=== PATIENT | male | born 1995 | race Two or more races ===

== ENCOUNTER 2024-03-15 00:59 | Inpatient (IN) | payer MEDICAID, OTHER ==
[~2024-03-15] VITALS: Ht 185.4 cm; Wt 83.5 kg
[2024-03-15] MEDS: DiphenhydrAMINE HCL 50 MG/ML VIAL IM ONE (02:11)
[2024-03-15] MEDS: HALOPERIDOL LACTATE 5 MG/ML VIAL IM ONE (02:11)
[2024-03-15] MEDS: LORazepam 2 MG/ML VIAL IM ONE (02:11)
[2024-03-15 02:35] LABS: COVID AG,FIA SOURCE NASAL SWAB
[2024-03-15 02:44] LABS: BASOPHILS % (AUTO) 0.3 % (0.0-2.0); EOSINOPHILS % (AUTO) 1.1 % (1.0-6.0); HEMATOCRIT 37.5 % (41-53); HEMOGLOBIN 12.4 g/dL (13.5-17.5); LYMPHOCYTES # (AUTO) 1.7 K/uL (1.0-4.8); LYMPHOCYTES % (AUTO) 11.5 % (22.0-44.0); MEAN CORPUSCULAR HEMOGLOBIN 30.1 pg (26.0-34.0); MEAN CORPUSCULAR HGB CONC 33.2 G/dL (31.0-37.0); MEAN CORPUSCULAR VOLUME 91 fL (80-100); MONOCYTES # (AUTO) 1.3 K/uL (0.1-1.0); MONOCYTES % (AUTO) 8.3 % (2.0-9.0); NEUTROPHILS # (AUTO) 11.9 K/uL (1.8-7.7); NEUTROPHILS % (AUTO) 78.8 % (40.0-70.0); PLATELET COUNT (AUTO) 299 K/uL (150-450); RED BLOOD CELL COUNT(AUTO) 4.14 MIL/uL (4.50-5.90); WHITE BLOOD COUNT (AUTO) 15.1 K/uL (4.5-11.0)
[2024-03-15 02:54] LABS: SARS-COV2 (COVID) ANTIGEN,FIA Negative (Negative)
[2024-03-15 02:55] LABS: ANION GAP 6 mmol/L (8-16); CALCIUM, TOTAL 9.3 mg/dL (8.8-10.5); CARBON DIOXIDE 31 mmol/L (22-29); CHLORIDE 102 mmol/L (98-107); CREATININE 1.06 mg/dL (0.60-1.30); GLOMERULAR FILTR. RATE CALC > 60 mL/min (>60); GLUCOSE,RANDOM 92 mg/dL (70-110); POTASSIUM 4.3 mmol/L (3.5-5.1); SODIUM SERUM 139 mmol/L (136-145); UREA NITROGEN, BLOOD 18 mg/dL (7-18)
[2024-03-15 02:56] LABS: ALCOHOL, BLOOD (SERUM) < 3 mg/dL (0-10)
[2024-03-15] MEDS ORDERED: SERT-439 PO (14:12)
[2024-03-15] MEDS ORDERED: LITH300C3 PO (14:12)
[2024-03-15] MEDS ORDERED: OLAN10TA74 PO (14:12)
[2024-03-15] MEDS ORDERED: CHOL200059 PO (14:16)
[2024-03-15] MEDS: SERTRALINE HCL 50 MG TABLET PO SCH (14:19)
[2024-03-15] MEDS ORDERED: CloNIDine HCL 0.1 MG TABLET PO PRN (15:00)
[2024-03-15] MEDS ORDERED: LOPERAMIDE HCL 2 MG CAPSULE PO PRN (15:00)
[2024-03-15] MEDS ORDERED: ACETAMINOPHEN 325 MG TABLET PO PRN (15:00)
[2024-03-15] MEDS ORDERED: NICOTINE 14 MG/24 HOUR PATCH TD PRN (15:00)
[2024-03-15] MEDS ORDERED: ONDANSETRON HCL 4 MG TABLET PO PRN (15:00)
[2024-03-15] MEDS ORDERED: IBUPROFEN 400 MG TABLET PO PRN (15:00)
[2024-03-15] MEDS ORDERED: MAGNESIUM HYDROXIDE SUSPENSION 30 ML UDCUP PO PRN (15:00)
[2024-03-15] MEDS ORDERED: ALBUTEROL SULFATE HFA 90 MCG/PUFF 8 GM INHALER IH PRN (15:00)
[2024-03-15] MEDS ORDERED: DOCUSATE SODIUM 100 MG CAPSULE PO PRN (15:00)
[2024-03-15] MEDS ORDERED: GuaiFENesin/D-METHORPHAN [SUGAR-FREE] 200-20MG/10 ML SYRUP UDCUP PO PRN (15:00)
[2024-03-15] MEDS ORDERED: PETROLATUM,WHITE 28 GM JELLY TP PRN (15:00)
[2024-03-15] MEDS ORDERED: MAG HYDROX/ALUMINUM HYD/SIMETH ES 30 ML SUSPENSION UDCUP PO PRN (15:00)
[2024-03-15] MEDS: LITHIUM CARBONATE 300 MG CAPSULE PO SCH (16:42)
[2024-03-15] MEDS: OLANZapine 10 MG TABLET PO SCH (20:17)
[2024-03-16 08:48] LABS: HEMOGLOBIN A1C 5.5 % (3.8-5.6)
[2024-03-16 09:18] LABS: CHOL/HDL RATIO 1.6 (4.2-7.3); THYROID STIMULATING HORMONE 0.45 uIU/mL (0.36-3.74)
[2024-03-16 10:10] VITALS: BP 110/56; PULSE 68; RESP 18; TEMP 98.4
[2024-03-16] MEDS: HALOPERIDOL 5 MG TABLET PO PRN (21:11)
[2024-03-16] MEDS: LORazepam 2 MG TABLET PO PRN (21:11)
[2024-03-16 21:22] VITALS: RESP 18
[2024-03-16] MEDS: ZOLPIDEM TARTRATE 10 MG TABLET PO PRN (21:30)
[2024-03-17 09:08] VITALS: BP 121/74; PULSE 103; RESP 18; TEMP 98.8
[2024-03-17 21:22] VITALS: BP 137/70; PULSE 85; RESP 18; TEMP 98.5
[2024-03-18 08:00] LABS: BASOPHILS % (AUTO) 0.7 % (0.0-2.0); EOSINOPHILS % (AUTO) 2.5 % (1.0-6.0); HEMATOCRIT 43.5 % (41-53); HEMOGLOBIN 14.5 g/dL (13.5-17.5); LYMPHOCYTES # (AUTO) 2.2 K/uL (1.0-4.8); LYMPHOCYTES % (AUTO) 24.7 % (22.0-44.0); MEAN CORPUSCULAR HEMOGLOBIN 30.4 pg (26.0-34.0); MEAN CORPUSCULAR HGB CONC 33.3 G/dL (31.0-37.0); MEAN CORPUSCULAR VOLUME 91 fL (80-100); MONOCYTES # (AUTO) 0.5 K/uL (0.1-1.0); MONOCYTES % (AUTO) 6.3 % (2.0-9.0); NEUTROPHILS # (AUTO) 5.8 K/uL (1.8-7.7); NEUTROPHILS % (AUTO) 65.8 % (40.0-70.0); PLATELET COUNT (AUTO) 365 K/uL (150-450); RED BLOOD CELL COUNT(AUTO) 4.77 MIL/uL (4.50-5.90); RED CELL DISTRIBUTION WIDTH 13.1 % (11.5-14.5); WHITE BLOOD COUNT (AUTO) 8.7 K/uL (4.5-11.0)
[2024-03-18 08:45] VITALS: RESP 18
[2024-03-18 22:38] VITALS: RESP 18
[2024-03-19 15:12] VITALS: RESP 18
[2024-03-19 23:48] VITALS: BP 108/66; PULSE 80; RESP 18; TEMP 96.9
[2024-03-20 11:14] VITALS: BP 114/77; PULSE 64; RESP 18; TEMP 97.4
[2024-03-20 21:43] VITALS: BP 101/60; PULSE 81; RESP 18; TEMP 98.4
[2024-03-21 09:05] VITALS: BP 111/79; PULSE 95; RESP 16; TEMP 97.6
[2024-03-21] MEDS ORDERED: LITH300C3 PO (14:31)
[2024-03-21] MEDS ORDERED: OLAN10TA74 PO (14:31)
[2024-03-21] MEDS ORDERED: SERT-439 PO (14:31)
[2024-03-21] MEDS ORDERED: NALO4SPR NASAL (14:31)
== END 2024-03-21 15:35 | disposition home or self-care (01) | DRG 750 ==
LOC: EMS 00:59 → EDBD 00:59 → 3EC 05:16
PROVIDERS: ADMIT Psychiatry & Neurology Psychiatry; ATTEND Psychiatry & Neurology Psychiatry
PROC: GZHZZZZ Group Psychotherapy (ICD-10-PCS; principal; 2024-03-15)
PROC: GZ52ZZZ Individual Psychotherapy, Cognitive (ICD-10-PCS; 2024-03-15)
DX: F25.0 Schizoaffective disorder, bipolar type (principal); D64.9 Anemia, unspecified; Z20.822 Contact with and (suspected) exposure to COVID-19; D72.829 Elevated white blood cell count, unspecified; F17.210 Nicotine dependence, cigarettes, uncomplicated; F41.9 Anxiety disorder, unspecified; G47.00 Insomnia, unspecified; Y90.0 Blood alcohol level of less than 20 mg/100 ml; Z79.899 Other long term (current) drug therapy
CPT/HCPCS: 80048; 80061; 80178; 83036; 84443; 85025; 99285; G0480; J1200; J1630; J2060

== ENCOUNTER 2024-05-28 19:13 | Inpatient (IN) | payer MEDICAID, OTHER ==
[~2024-05-28] VITALS: Ht 188 cm; Wt 77.2 kg
[~2024-05-28 19:13] MED LIST: LITH300C3 PO; LITH600C5 PO; NALO4SPR NASAL; OLAN10TA74 PO; PALI156D IM; QUET200T PO; SERT-439 PO
[2024-05-28 20:25] LABS: BASOPHILS % (AUTO) 0.3 % (0.0-2.0); EOSINOPHILS % (AUTO) 2.8 % (1.0-6.0); HEMATOCRIT 35.7 % (41-53); HEMOGLOBIN 12.1 g/dL (13.5-17.5); LYMPHOCYTES # (AUTO) 2.1 K/uL (1.0-4.8); MEAN CORPUSCULAR HEMOGLOBIN 30.6 pg (26.0-34.0); MEAN CORPUSCULAR VOLUME 90 fL (80-100); MONOCYTES # (AUTO) 0.9 K/uL (0.1-1.0); MONOCYTES % (AUTO) 10.4 % (2.0-9.0); NEUTROPHILS # (AUTO) 5.6 K/uL (1.8-7.7); NEUTROPHILS % (AUTO) 62.5 % (40.0-70.0); PLATELET COUNT (AUTO) 261 K/uL (150-450); RED BLOOD CELL COUNT(AUTO) 3.97 MIL/uL (4.50-5.90); RED CELL DISTRIBUTION WIDTH 13.4 % (11.5-14.5); WHITE BLOOD COUNT (AUTO) 8.9 K/uL (4.5-11.0)
[2024-05-28 20:35] LABS: ANION GAP 8 mmol/L (8-16); CALCIUM, TOTAL 8.8 mg/dL (8.8-10.5); CARBON DIOXIDE 28 mmol/L (22-29); CHLORIDE 103 mmol/L (98-107); CREATININE 0.88 mg/dL (0.60-1.30); GLOMERULAR FILTR. RATE CALC > 60 mL/min (>60); GLUCOSE,RANDOM 97 mg/dL (70-110); POTASSIUM 3.6 mmol/L (3.5-5.1); SODIUM SERUM 139 mmol/L (136-145); UREA NITROGEN, BLOOD 19 mg/dL (7-18)
[2024-05-28 20:46] LABS: ALCOHOL, BLOOD (SERUM) < 3 mg/dL (0-10)
[2024-05-28 22:58] LABS: COVID AG,FIA SOURCE NASAL SWAB
[2024-05-28 23:16] LABS: SARS-COV2 (COVID) ANTIGEN,FIA Negative (Negative)
[2024-05-28 23:20] VITALS: O2SAT 98
[2024-05-29] MEDS ORDERED: ZOLPIDEM TARTRATE 10 MG TABLET PO PRN (01:30)
[2024-05-29] MEDS ORDERED: HALOPERIDOL 5 MG TABLET PO PRN (01:30)
[2024-05-29] MEDS ORDERED: LORazepam 2 MG TABLET PO PRN (01:30)
[2024-05-29 02:15] VITALS: BP 113/59; PULSE 60; RESP 18; TEMP 98; O2SAT 98
[2024-05-29 10:35] VITALS: BP 109/59; PULSE 79; RESP 18; TEMP 97.7; O2SAT 99
[2024-05-29] MEDS: QUEtiapine FUMARATE 200 MG TABLET PO SCH (12:44)
[2024-05-29] MEDS: SERTRALINE HCL 100 MG TABLET PO SCH (12:44)
[2024-05-29] MEDS ORDERED: NICOTINE 14 MG/24 HOUR PATCH TD PRN (15:00)
[2024-05-29] MEDS ORDERED: MAG HYDROX/ALUMINUM HYD/SIMETH ES 30 ML SUSPENSION UDCUP PO PRN (15:00)
[2024-05-29] MEDS ORDERED: LOPERAMIDE HCL 2 MG CAPSULE PO PRN (15:00)
[2024-05-29] MEDS ORDERED: PETROLATUM,WHITE 28 GM JELLY TP PRN (15:00)
[2024-05-29] MEDS ORDERED: ALBUTEROL SULFATE HFA 90 MCG/PUFF 8 GM INHALER IH PRN (15:00)
[2024-05-29] MEDS ORDERED: DOCUSATE SODIUM 100 MG CAPSULE PO PRN (15:00)
[2024-05-29] MEDS ORDERED: MAGNESIUM HYDROXIDE SUSPENSION 30 ML UDCUP PO PRN (15:00)
[2024-05-29] MEDS ORDERED: CloNIDine HCL 0.1 MG TABLET PO PRN (15:00)
[2024-05-29] MEDS ORDERED: IBUPROFEN 400 MG TABLET PO PRN (15:00)
[2024-05-29] MEDS ORDERED: GuaiFENesin/D-METHORPHAN [SUGAR-FREE] 200-20MG/10 ML SYRUP UDCUP PO PRN (15:00)
[2024-05-29] MEDS ORDERED: ONDANSETRON 4 MG TABLET PO PRN (15:00)
[2024-05-29] MEDS ORDERED: ACETAMINOPHEN 325 MG TABLET PO PRN (15:00)
[2024-05-29] MEDS: LITHIUM CARBONATE 600 MG CAPSULE PO SCH (17:11)
[2024-05-29] MEDS: OLANZapine 10 MG TABLET PO SCH (21:14)
[2024-05-29 21:51] VITALS: BP 111/74; PULSE 74; RESP 18; O2SAT 100
[2024-05-30 09:18] LABS: CHOL/HDL RATIO 1.6 (4.2-7.3); THYROID STIMULATING HORMONE 0.39 uIU/mL (0.36-3.74)
[2024-05-30 10:13] LABS: HEMOGLOBIN A1C 5.5 % (3.8-5.6)
[2024-05-30 14:10] VITALS: BP 115/74; PULSE 68; RESP 18; TEMP 97.9; O2SAT 99
[2024-05-30] MEDS: PALIPERIDONE PALMITATE 234 MG/1.5 ML SYRINGE IM ONE (17:56)
[2024-05-30 20:27] VITALS: BP 119/71; PULSE 70; RESP 18; TEMP 97.5; O2SAT 98
[2024-05-31 08:00] VITALS: BP 134/75; PULSE 90; RESP 19; TEMP 98; O2SAT 97
[2024-05-31 20:46] VITALS: RESP 18
[2024-06-01 08:00] VITALS: BP 102/61; PULSE 79; RESP 19; TEMP 97.6; O2SAT 97
[2024-06-01 15:19] LABS: COVID AG,FIA SOURCE NASAL SWAB
[2024-06-01 16:00] LABS: SARS-COV2 (COVID) ANTIGEN,FIA Negative (Negative)
[2024-06-01 20:34] VITALS: RESP 18
[2024-06-02 09:45] VITALS: BP 106/67; PULSE 93; RESP 17; TEMP 97.7; O2SAT 98
[2024-06-02 21:04] VITALS: RESP 18
[2024-06-03 10:58] VITALS: BP 109/59; PULSE 92; RESP 20; TEMP 98.9; O2SAT 100
[2024-06-03] MEDS ORDERED: OLAN10TA74 PO ×2 (15:24→15:28)
[2024-06-03] MEDS ORDERED: SERT-162 PO (15:24)
[2024-06-03] MEDS ORDERED: QUET200T30 PO (15:28)
[2024-06-03] MEDS ORDERED: SERT-440 PO (15:28)
== END 2024-06-03 18:35 | disposition home or self-care (01) | DRG 750 ==
LOC: EMS 19:18 → 3EC 05-29 01:59
PROVIDERS: ADMIT Psychiatry & Neurology Child & Adolescent Psychiatry; ATTEND Psychiatry & Neurology Child & Adolescent Psychiatry
PROC: GZHZZZZ Group Psychotherapy (ICD-10-PCS; principal; 2024-05-30)
PROC: GZ52ZZZ Individual Psychotherapy, Cognitive (ICD-10-PCS; 2024-05-30)
DX: F25.1 Schizoaffective disorder, depressive type (principal); Z91.148 Patient's other noncompliance with medication regimen for other reason; D64.9 Anemia, unspecified; Z20.822 Contact with and (suspected) exposure to COVID-19; F41.9 Anxiety disorder, unspecified; F11.90 Opioid use, unspecified, uncomplicated; F15.90 Other stimulant use, unspecified, uncomplicated; I10 Essential (primary) hypertension; Z87.891 Personal history of nicotine dependence
CPT/HCPCS: 80048; 80061; 80178; 83036; 84443; 85025; 99285; G0480